=== PATIENT | female | born 1970 | race American Indian/Alaskan Native ===

== ENCOUNTER 2017-12-01 11:45 | Observation (INO) | payer OTHER ==
[2017-11-30 10:42] LABS: Basophils # (Auto) 0.1 K/mm3 (0.0-0.1); Basophils % (Auto) 1.2 % (0.0-1.8); Eosinophils # (Auto) 0.3 K/mm3 (0.0-0.4); Eosinophils % (Auto) 5.9 % (0.0-4.3); Hematocrit 39.3 % (30.3-42.9); Hemoglobin 12.5 gm/dl (10.1-14.3); Lymphocytes # (Auto) 1.7 K/mm3 (1.2-5.4); Lymphocytes % (Auto) 34.7 % (13.4-35.0); Mean Corpuscular HGB Conc 32 % (30-34); Mean Corpuscular Volume 80 fl (79-97); Monocytes # (Auto) 0.4 K/mm3 (0.0-0.8); Monocytes % (Auto) 7.6 % (0.0-7.3); Platelet Count 521 K/mm3 (140-440); Red Blood Count 4.92 M/mm3 (3.65-5.03); Red Cell Distribution Width 16.9 % (13.2-15.2)
[2017-11-30 10:52] LABS: Mean Corpuscular Hemoglobin 25 pg (28-32)
[2017-11-30 10:56] LABS: BUN/Creatinine Ratio 23; Blood Urea Nitrogen 16 mg/dL (7-17); Calcium 8.9 mg/dL (8.4-10.2); Hemolysis Index 7
[2017-12-01] MEDS ORDERED: NACL BACTERIOSTATIC INFILTRATI ONE (12:11)
[2017-12-01] MEDS ORDERED: XYLOCAINE MPF 2% ONE (12:38)
[2017-12-01] MEDS ORDERED: DIPRIVAN 10 MG/ML IV ONE (12:38)
[2017-12-01] MEDS ORDERED: ZEMURON IV ONE (12:38)
[2017-12-01] MEDS ORDERED: SUBLIMAZE ONE (12:38)
--- NOTE | 2017-12-01 12:42 | History and Physical Report ---
History of Present Illness Date of examination: 12/01/17 Chief complaint: Symptomatic uterine fibroids History of present illness: Pt is a 47yo BF LMP 10/25/17 presents for surgical evaluation and treatment of symptomatic uterine fibroids with prolonged heavy vaginal bleeding. She was recently hospitalized for a blood transfusion due to symptomatic anemia and menorrhagia. Pelvic u/s showed an enlarged uterus 13 x 10 x 10cm with a large 8 x 7 x 7cm fibroid. Her Pap and endometrial biopsies were benign. She desires and is therefore scheduled for a Robotic Assisted Total Hysterectomy with Bilateral SalpingoOophorectomy. Past History Past Medical History: hypertension, blood transfusion Past Surgical History: section [employer] History: fibroids Social history: no significant social history, Medications and Allergies Allergies Allergy/AdvReac Type Severity Reaction Status Date / Time dog dander Allergy Swelling Verified 11/24/17 13:03 shellfish derived Allergy Swelling , Verified 11/24/17 13:03 RASH Home Medications Medication Instructions Recorded Confirmed Last Taken Type Ferrous Sulfate 324 mg PO DAILY 11/24/17 12/01/17 11/30/17 History Metoprolol [Lopressor TAB] 50 mg PO Q48HR 11/24/17 12/01/17 11/30/17 History Triamterene/Hydrochlorothiazid 1 each PO DAILY 11/30/17 12/01/17 11/30/17 History [Triamterene-Hctz 37.5-25 mg Cp] Active Meds: Active Medications Cefazolin Sodium (Ancef/Sterile Water 2 Gm/20 Ml) 2 gm in 20 mls @ 80 mls/hr IV PREOP RACHEL; Protocol Lactated Ringer's (Lactated Ringers) 1,000 mls @ 125 mls/hr IV DIRECT RACHEL Review of Systems All systems: negative - Vital Signs Vital signs: Vital Signs Temp Pulse Resp BP 97.6 F 74 20 120/70 11/30/17 10:15 11/30/17 10:15 11/30/17 10:15 11/30/17 10:15 Temp Pulse Resp BP Pulse Ox 97.6 F 74 20 120/70 11/30/17 10:15 11/30/17 10:15 11/30/17 10:15 11/30/17 10:15 - Physical Exam Breasts: Positive: deferred Cardiovascular: Regular rate Abdomen: Positive: normal appearance Genitourinary (Female): Positive: normal external genitalia Uterus: Positive: enlarged Anus/Rectum: Positive: normal perianal skin Extremities: Positive: normal Results Result Diagrams: 11/30/17 10:15 11/30/17 10:15 All other labs normal. Ultrasound: report reviewed Assessment and Plan - Patient Problems (1) Uterine fibroid Onset Date: 12/01/17 Current Visit: Yes Status: Acute Qualifiers: Uterine leiomyoma location: intramural, submucous, and subserous Qualified Code(s): D25.1 - Intramural leiomyoma of uterus; D25.0 - Submucous leiomyoma of uterus; D25.2 - Subserosal leiomyoma of uterus Plan to address problem: A: Symptomatic uterine fibroids Menorrhagia - most likely due to uterine fibroids P: Admit for a Robotic Assisted Total Hysterectomy with Bilateral SalpingoOophorectomy. (2) Menorrhagia with regular cycle Onset Date: 12/01/17 Current Visit: Yes Status: Acute
[2017-12-01] MEDS ORDERED: ZOFRAN IV PRN ×2 (12:43→16:04)
[2017-12-01] MEDS ORDERED: DILAUDID IV PRN (12:43)
[2017-12-01] MEDS ORDERED: ANCEF/STERILE WATER 2 GM/20 ML 2 GM/20 ML SYRINGE IV SCH (13:00)
[2017-12-01] MEDS ORDERED: MARCAINE 0.5% 30 ML INFILTRATI ONE (13:00)
[2017-12-01] MEDS ORDERED: VERSED IV NR (13:00)
[2017-12-01] MEDS ORDERED: NEURONTIN PO NR (13:00)
[2017-12-01] MEDS ORDERED: LACTATED RINGERS 1,000 ML IV SCH ×2 (13:00)
[2017-12-01] MEDS ORDERED: DILAUDID ONE (13:23)
[2017-12-01] MEDS ORDERED: ZOFRAN ONE (13:25)
[2017-12-01] MEDS ORDERED: NEOSPORIN GU IR ONE ×2 (13:40→14:43)
[2017-12-01] MEDS ORDERED: DECADRON ONE (14:09)
[2017-12-01] MEDS ORDERED: NACL 0.9% IR ONE ×2 (14:43)
[2017-12-01] MEDS ORDERED: TORADOL ONE (15:59)
[2017-12-01] MEDS ORDERED: ROBINUL ONE (15:59)
[2017-12-01] MEDS ORDERED: BLOXIVERZ ONE (15:59)
[2017-12-01] MEDS ORDERED: REGLAN IV PRN (16:04)
[2017-12-01] MEDS ORDERED: PERCOCET 5/325 PO PRN (16:04)
[2017-12-01] MEDS ORDERED: TYLENOL PO PRN (16:04)
[2017-12-01] MEDS ORDERED: NORCO 5/325 PO PRN (16:04)
[2017-12-01] MEDS ORDERED: MILK OF MAGNESIA PO PRN (16:04)
--- NOTE | 2017-12-01 16:29 | Operative Report ---
Operative Report Operative Report: Date of procedure: 12/01/2017 Pre-operative diagnosis: 1. Symptomatic uterine fibroids 2. Menorrhagia Post-operative diagnosis: Same Procedure name(s): 1. Robotic-assisted total hysterectomy 2. Bilateral salpingo-oophorectomy Surgeon: Antonio Schaffer MD Building Maintenance Superintendent: Steve Harrison CSA Anesthesia: MELE Block followed by general endotracheal intubation by Dr. Jimenez EBL: 200 mls Findings: A 14-16 week sized myomatous uterus. Distorted fallopian tubes and atrophic ovaries bilaterally. Procedure: After the patient's first correctly identified she was prepped and draped in the usual sterile fashion and placed in the dorsolithotomy position. The bladder was first catheterized using Benoit catheter and the speculum was placed in the vagina and the anterior lip of the cervix was grasped using a single-tooth tenaculum, and the medium Vesicare cup was placed. The tenaculum and speculum was then removed from the vagina and attention was then turned to the abdomen. The skin knife was used to make a small incision approximately 5 cm above the umbilicus through which a 12 mm trocar was placed under direct visualization. After adequate amount of abdominal insufflation visualization of the pelvic organs found the uterus to be enlarged and the tubes were distorted and ovaries were found to be atrophic bilaterally. A right and left paramedian incision was made through which the 8 mm trochars were placed under direct visualization and a 5 mm trocar was placed in the right lower quadrant. The patient was then placed in steep Trendelenburg positioning and the robot was docked on the patient's left side. After all the robotic ports were connected and adequate functioning of the robotic arms were tested the surgeon then proceeded to the console to begin the hysterectomy. First the left round ligament was grasped, cauterized and cut, the left infundibulopelvic ligament was grasped, cauterized and cut, thus freeing the left ovary and fallopian tube from the left pelvic sidewall. The same procedure was performed on the right. The right round ligament was grasped, cauterized and cut, the right infundibulopelvic ligament was grasped, cauterized and cut, thus freeing the right ovary and fallopian tube from the right pelvic sidewall. The bladder flap was taken down anteriorly and the uterine vessels were grasped, cauterized and cut bilaterally. The cardinal ligaments were sequentially grasped, cauterized and cut down to the level of the uterosacral ligaments. At this time the posterior colpotomy was performed over the Vcare cup, and the cervix was circumscribed beginning posteriorly and meeting anteriorly until the cervix was freed. The cervix and uterus was then removed by extensive morcellation through the vagina and sent to pathology. The vaginal cuff was then closed using 2-0 Vloc suture in a running fashion. Irrigation was then performed and after good hemostasis was achieved the procedure was considered complete. The Tisseel sealant was then sprayed across the vaginal cuff site, and after excellent hemostasis was assured Interceed was placed across the vaginal cuff site. All instruments were then removed from the abdominal cavity. And each incision was closed using 0 Vicryl suture in a [id number] configuration on the fascia followed by 4-0 Monocryl suture in a sub-cuticular fashion on the skin. Each incision was also infiltrated using 0.5% Marcaine solution. The vaginal pack was removed. The patient tolerated the procedure well and was transported to the recovery room in stable condition.
[2017-12-01] MEDS ORDERED: D5LR 1,000 ML IV SCH (17:00)
[2017-12-01] MEDS ORDERED: D5LR 1,000 ML IV ONE (17:36)
[2017-12-01] MEDS ORDERED: CLIMARA TD SCH (18:00)
[2017-12-01] MEDS ORDERED: COLACE PO SCH (22:00)
[2017-12-01] MEDS: ANCEF/NS 1 GM/50 ML 1 GM/50 ML BAG IV SCH (23:04)
[2017-12-01] MEDS: TORADOL IV SCH (23:05)
[2017-12-02 06:12] LABS: Hematocrit 34.4 % (30.3-42.9); Hemoglobin 10.8 gm/dl (10.1-14.3)
[2017-12-02 06:30] LABS: BUN/Creatinine Ratio 15; Blood Urea Nitrogen 12 mg/dL (7-17); Calcium 8.1 mg/dL (8.4-10.2); Hemolysis Index 5
[2017-12-02] MEDS: ANCEF/NS 1 GM/50 ML 1 GM/50 ML BAG IV SCH (06:50)
[2017-12-02] MEDS: TORADOL IV SCH (06:52)
--- NOTE | 2017-12-02 08:34 | Progress Note ---
Assessment and Plan - Patient Problems (1) Uterine fibroid Onset Date: 12/01/17 Current Visit: Yes Status: Resolved Qualifiers: Uterine leiomyoma location: intramural, submucous, and subserous Qualified Code(s): D25.1 - Intramural leiomyoma of uterus; D25.0 - Submucous leiomyoma of uterus; D25.2 - Subserosal leiomyoma of uterus (2) Menorrhagia with regular cycle Onset Date: 12/01/17 Current Visit: Yes Status: Resolved (3) Status post robot-assisted surgical procedure Onset Date: 12/02/17 Current Visit: Yes Status: Resolved Plan to address problem: A: S/P RATH with BSO - POD #1 Doing well Asymptomatic anemia - stable P: May go home today. Subjective - Subjective Date of service: 12/02/17 Principal diagnosis: s/p RATH - POD #1 Interval history: Pt is s/p a Robotic Assisted Total Hysterectomy with Bilateral SalpingoOophorectomy, and feeling well. She is tolerating a soft diet without nausea or vomiting, ambulating and voiding without difficulty. Patient reports: appetite normal, voiding normally, pain well controlled, flatus , ambulating normally, no dizzy ambulation, no nauseated Objective - Vital Signs Latest vital signs: Vital Signs Temp Pulse Pulse Resp Resp BP BP 12/02/17 04:10 98.2 F 64 20 112/57 12/02/17 00:00 98.3 F 89 20 114/66 12/01/17 23:05 18 12/01/17 20:05 98.2 F 63 20 149/78 12/01/17 18:20 97.7 F 54 L 54 L 16 16 150/78 12/01/17 17:45 53 L 10 L 133/68 12/01/17 17:30 57 L 10 L 122/69 12/01/17 17:15 98.3 F 64 12 110/62 12/01/17 17:00 59 L 10 L 89/54 12/01/17 16:45 58 L 10 L 105/55 12/01/17 16:40 55 L 10 L 101/48 12/01/17 16:35 54 L 10 L 106/49 12/01/17 16:30 52 L 10 L 104/51 12/01/17 16:25 53 L 10 L 103/52 12/01/17 16:20 49 L 12 111/54 12/01/17 16:16 97 F L 50 L 16 98/55 12/01/17 12:29 99.2 F 60 16 152/79 12/01/17 12:00 99.2 F 60 16 152/79 Pulse Ox 12/02/17 04:10 100 12/02/17 00:00 100 12/01/17 23:05 12/01/17 20:05 98 12/01/17 18:20 100 12/01/17 17:45 100 12/01/17 17:30 100 12/01/17 17:15 100 12/01/17 17:00 100 12/01/17 16:45 100 12/01/17 16:40 100 12/01/17 16:35 100 12/01/17 16:30 100 12/01/17 16:25 100 12/01/17 16:20 100 12/01/17 16:16 100 12/01/17 12:29 98 12/01/17 12:00 98 Intake and Output 12/01/17 12/02/17 12/02/17 22:59 06:59 14:59 Intake Total 1370 290 Output Total 50 1400 Balance 1320 -1110 Intake: IV 1250 50 ANCEF/NS 1 GM/50 ML 1 gm 50 In 50 ml @ 100 mls/hr IV Q8H ON LICENSE OF [facility] Rx#:[id number] Oral 120 240 Output: Urine 50 1400 Indwelling Catheter 1400 Other: Total, Intake Amount 120 120 Total, Output Amount 600 Voiding Method Indwelling Catheter - Exam Breasts: Present: deferred Cardiovascular: Present: Regular rate Lungs: Present: Clear to auscultation Abdomen: Present: normal appearance, soft Extremities: Present: normal Incision: Present: normal, dry, intact - Labs Labs: Abnormal lab results 12/02/17 Range/Units 05:41 Glucose 141 H (65-100) mg/dL Calcium 8.1 L (8.4-10.2) mg/dL Laboratory Tests 11/30/17 11/30/17 11/30/17 10:15 10:15 10:15 WBC 4.9 RBC 4.92 Hgb 12.5 Hct 39.3 MCV 80 MCH 25 L MCHC 32 RDW 16.9 H Plt Count 521 H Lymph % (Auto) 34.7 [place] % (Auto) 7.6 H Eos % (Auto) 5.9 H Baso % (Auto) 1.2 Lymph # 1.7 [place] # 0.4 Eos # 0.3 Baso # 0.1 Seg Neutrophils % 50.6 Seg Neutrophils # 2.5 Sodium 137 Potassium 3.8 Chloride 100.2 Carbon Dioxide 25 Anion Gap 16 BUN 16 Creatinine 0.7 Estimated GFR > 60 BUN/Creatinine Ratio 23 Glucose 92 Calcium 8.9 HCG, Qual Negative Blood Type Antibody Screen 12/01/17 12/02/17 12/02/17 12:20 05:41 05:41 WBC RBC Hgb 10.8 Hct 34.4 MCV MCH MCHC RDW Plt Count Lymph % (Auto) [place] % (Auto) Eos % (Auto) Baso % (Auto) Lymph # [place] # Eos # Baso # Seg Neutrophils % Seg Neutrophils # Sodium 138 Potassium 3.8 Chloride 100.7 Carbon Dioxide 24 Anion Gap 17 BUN 12 Creatinine 0.8 Estimated GFR > 60 BUN/Creatinine Ratio 15 Glucose 141 H Calcium 8.1 L HCG, Qual Blood Type O POSITIVE Antibody Screen Negative
--- NOTE | 2017-12-02 09:00 | Discharge Summary ---
Providers - Providers Date of Admission: 12/01/17 16:04 Date of discharge: 12/02/17 Attending physician: AYALA POWERS Primary care physician: BOSSMAN AQUINO Hospitalization Reason for admission: other (Symptomatic uterine fibroids; Menorrhagia) Procedure: other (Robotic Assisted Total Hysterectomy with BSO) Incision: normal, dry, intact Other procedures: none complications: none Discharge diagnosis: other (s/p RATH with BSO) Hospital course: Pt is a 47yo BF LMP 10/25/17 who presented for surgical evaluation and treatment of symptomatic uterine fibroids with prolonged heavy vaginal bleeding. She was recently hospitalized for a blood transfusion due to symptomatic anemia and menorrhagia. Pelvic u/s showed an enlarged uterus 13 x 10 x 10cm with a large 8 x 7 x 7cm fibroid. Her Pap and endometrial biopsies were benign. She underwent an uncomplicated Robotic Assisted Total Hysterectomy with Bilateral SalpingoOophorectomy. By POD #1 she was tolerating a reg diet without nausea or vomiting, ambulating and voiding without difficulty, and therefore was discharged to home on POD #1 in stable condition. Condition at discharge: Good Disposition: DC-01 TO HOME OR SELFCARE - Discharge Diagnoses (1) Uterine fibroid Status: Resolved Qualifiers: Uterine leiomyoma location: intramural, submucous, and subserous Qualified Code(s): D25.1 - Intramural leiomyoma of uterus; D25.0 - Submucous leiomyoma of uterus; D25.2 - Subserosal leiomyoma of uterus (2) Menorrhagia with regular cycle Status: Resolved Plan - Discharge Medications Prescriptions: HYDROcodone/APAP 5-325 [[place] 5-325 mg TAB] 1 each PO Q6HR PRN #30 tablet PRN Reason: Pain, Moderate (4-6) Ibuprofen [Motrin] 800 mg PO Q8HR PRN #30 tablet PRN Reason: Moder Pain Unrelieved By [place] - Provider Discharge Summary Activity: routine, no sex for 6 weeks, no heavy lifting 4 weeks, no strenuous exercise Diet: routine Instructions: routine Additional instructions: [] Smoking cessation referral if applicable(refer to patient education folder for contact #) [] Refer to [facility] Booklet Call your doctor immediately for: * Fever > 100.5 * Heavy vaginal bleeding ( >1 pad per hour) * Severe persistent headache * Shortness of breath * Reddened, hot, painful area to leg or breast * Drainage or odor from incision. * Keep incision clean and dry at all times and follow doctor's instructions regarding bathing/showering - Follow up plan Follow up: AYALA POWERS MD [Staff Physician] - 14 Days KENIABOSSMAN Howard MD [Primary Care Provider] - 14 Days
[2017-12-02 12:57] VITALS: BP 103/47
== END 2017-12-02 13:00 | disposition home or self-care (01) ==
LOC: OR 11:45 → OB 16:04
PROVIDERS: ADMIT Obstetrics & Gynecology; ATTEND Obstetrics & Gynecology
DX: N92.0 Excessive and frequent menstruation with regular cycle (principal); D25.0 Submucous leiomyoma of uterus; D25.1 Intramural leiomyoma of uterus; D25.2 Subserosal leiomyoma of uterus; I10 Essential (primary) hypertension
CPT/HCPCS: 36415; 58554; 80048; 84703; 85014; 85018; 85025; 86850; 86900; 86901; 88307; 96365; 96366; 96375; 96376; A4217; C1765; C9250; G0378; J0690; J0735; J1100; J1170; J1885; J2250; J2405; J2704; J2710; J3010; J7120; J7121; S2900